=== PATIENT | male | born 1985 | race African-American/Black ===

== ENCOUNTER 2017-01-09 00:22 | Inpatient (IN) | payer OTHER ==
--- NOTE | ~2017-01-09 | PA ---
Unit #: [id number] #: [id number] Patient: WILFREDO BRANDON [id number] [place] [address] [id number] MR#: [id number] NAME: WILFREDO BRANDON ROOM: 84 Age: 31 Sex: M Admission Date: 01/09/2017 : 1985 Date of Assessment: 01/09/2017 Attending Physician: Gregg Barrios M.D. Admitting Physician: Gregg Barrios M.D. Primary Care Physician: Primary Care Physician No PSYCHIATRIC ASSESSMENT IDENTIFYING INFORMATION The patient is a 31-year-old male admitted to the [address] [place] [address] for opioid detox. CHIEF COMPLAINT None given. INFORMANT(S) Chart. Patient cannot be aroused for interview. HISTORY OF PRESENT ILLNESS The patient is a 31-year-old male with a history of opioid dependence. The patient reports that he uses heroin by means of intranasal insufflation. He denies abuse of other psychiatric substances. The patient reports that he is "sick of living like this" and had reported suicidal ideation with plan to overdose. At the time of admission, the patient has no prior history of chemical dependence or other psychiatric treatment and denies prior suicide attempts or gestures. She denies recent changes in sleep or appetite though he does report that his motivation has been poor recently and his attendance to activities of daily living has been poor. PAST PSYCHIATRIC HISTORY None. PAST MEDICAL HISTORY Noncontributory. MEDICATIONS None. ALLERGIES None. FAMILY HISTORY Noncontributory. SOCIAL HISTORY The patient lives with his girlfriend. He is not presently employed. He reports substance use as noted previously. MENTAL STATUS EXAMINATION Examination at this time reveals the patient to be a soundly sleeping male. Multiple attempts to arouse the patient are Unit #: [id number] #: [id number] Patient: WILFREDO BRANDON unfortunately unsuccessful. ASSETS AND LIABILITIES The patient's assets are to be assessed. Liabilities: Lack of resources. DIAGNOSTIC IMPRESSION 1. Opioid use disorder. 2. Dysthymic disorder. TREATMENT PLAN The patient remains hospitalized for safety and stabilization. Suicide precautions are in place and routine detoxification for opioids has been initiated. The patient will participate in appropriate order of milieu activities. ESTIMATED LENGTH OF STAY 3 to 5 days. Dictated by... Prabha Echols TD: 01/09/2017 15:01 JOB #: [id number] PSYCHIATRIC ASSESSMENT Page 1 of 1 X Gregg Barrios MD PSYCHIATRIC ASSESSMENT
--- NOTE | ~2017-01-09 | PN ---
Unit #: [id number] #: [id number] Patient: WILFREDO BRANDON [id number] [facility] [address] [place] [address] [id number] MR#: [id number] NAME: WILFREDO BRANDON ROOM: [facility] Age: 31 Sex: M Admission Date: 01/09/2017 : 1985 Attending Physician: Gregg Barrios M.D. Admitting Physician: Gregg Barrios M.D. Primary Care Physician: Primary Care Physician Corrie OSWALD PROGRESS NOTES DATE 01/10/2017 DISCUSSION The patient is active within the therapeutic milieu. He continues to exhibit symptoms of opioid withdrawal. However, I have spoken with him regarding post-discharge treatment options, and he is expressing interesting in residential chemical dependence treatment following discharge. Dictated by... Gregg Barrios M.D. CB/arlen TD: 01/10/2017 13:54 JOB #: [id number] [facility] PROGRESS NOTES Page 1 of 1 X Gregg Barrios MD PROGRESS NOTE
--- NOTE | ~2017-01-09 | DS ---
Unit #: [id number] #: [id number] Patient: WILFREDO BRANDON [id number] [facility] [address] [place] [address] [id number] MR#: [id number] NAME: WILFREDO BRANDON ROOM: [facility] Age: 31 Sex: M Admission Date: 01/09/2017 : 1985 Discharge Date: 01/12/2017 Attending Physician: Gregg Barrios M.D. Primary Care Physician: Primary Care Physician No DISCHARGE SUMMARY REASON FOR ADMISSION The patient is a 31-year-old male, admitted to the [facility] unit for opioid detox. HOSPITAL COURSE The patient was admitted to the [facility] unit, placed on routine detoxification protocol for opioids. His stay in the hospital was a brief and uneventful one. He exhibited little in the way of signs or symptoms of withdrawal. By 01/13/2017, the patient was in brighter spirits and requested discharge and it was so ordered. FINAL DIAGNOSES Opioid use disorder, cannabis use disorder, methamphetamine use disorder. DISPOSITION ON DISCHARGE The patient is discharged on no psychotropic or other medications. FOLLOWUP Followup will take place through the auspices of the chemical dependency intensive outpatient program provided by this facility. PROGNOSIS Considered fair. Dictated by... Gregg Barrios M.D. CB/sienna TD: 01/13/2017 06:20 JOB #: [id number] DISCHARGE SUMMARY Page 1 of 1 X Gregg Barrios MD X DISCHARGE SUMMARY
--- NOTE | ~2017-01-09 | HP ---
Unit #: [id number] #: [id number] Patient: WILFREDO BRANDON [id number] [place] [address] [id number] MR#: [id number] NAME: WILFREDO BRANDON ROOM: P184 Age: 31 Sex: M Admission Date: 01/09/2017 : 1985 Attending Physician: Gregg Barrios M.D. Admitting Physician: Gregg Barrios M.D. Primary Care Physician: Primary Care Physician No HISTORY AND PHYSICAL HISTORY OF PRESENT ILLNESS Wilfredo is a 31 year old admitted to [facility] because of his drug use. He snorts heroin. PAST MEDICAL HISTORY Long history of opioid abuse to include snorting heroin. PAST SURGICAL HISTORY Bilateral arms. ALLERGIES No known drug allergies. SOCIAL HISTORY Smokes 1 pack per day. Denies alcohol. Admits to a long history of opioid abuse to include snorting heroin. FAMILY HISTORY Medically noncontributory. REVIEW OF SYSTEMS CONSTITUTIONAL: No fever or chills. HEENT: Denies any sore throat, ear pain or runny nose. CARDIOVASCULAR: Denies chest pain, irregular heart rhythm or palpitations. CHEST: Denies shortness of breath or cough. No hemoptysis. GASTROINTESTINAL: Denies nausea, vomiting, diarrhea or chronic constipation. ENDOCRINE: Denies history of increased thirst or urination. No recent significant weight loss or gain. GENITOURINARY: Denies dysuria, frequency, or hematuria. SKIN: Denies any rashes. HEMATOLOGIC: Denies history of increased bleeding or bruising. MUSCULOSKELETAL: Denies any hot, swollen joints. No generalized muscle pain. NEUROLOGIC: Denies problems with vision or speech. No frequent, severe headaches. No numbness, tingling or weakness in any extremities. Denies loss of bladder or bowel control. CURRENT MEDICATIONS Detox protocol. PHYSICAL EXAMINATION GENERAL: Alert, well-nourished, in no apparent distress. Unit #: [id number] #: [id number] Patient: WILFREDO BRANDON VITAL SIGNS: Blood pressure 115/70, heart rate 70, respirations 16, temperature 98.6. WEIGHT: 162. HEIGHT: 5 feet 11 inches. SKIN: Warm and dry without rash or lesion. HEENT: Normocephalic. TMs not viewed. Oral and nasal passages clear. Conjunctivae clear. PERRLA. EOMs intact. NECK: Supple without lymphadenopathy or thyromegaly. HEART: Regular rate and rhythm without murmur. LUNGS: Clear. ABDOMEN: Soft, nontender. : Not done. EXTREMITIES: No evidence of cyanosis, clubbing or edema. Moves all without focal deficit. NEUROLOGICAL: Grossly within normal limits. Cranial Nerves: II: Visual holliday are intact. III, IV AND : Extraocular movements are intact. Pupils are equal, round and reactive to light. V: Facial sensation is grossly normal. VII: Facial movements and expression are normal. VIII: Auditory acuity grossly intact. IX, X: Uvula is midline. Phonation is normal. XI: Patient shrugs shoulders and turns head normally. XII: Tongue protrudes in the midline. Sensory and Motor Function: Sensory and motor sensation is grossly normal. Motor: moves all extremities well. Coordination: Gait is normal. Deep Tendon Reflexes: Intact. IMPRESSION Psychiatric admission. RECOMMENDATIONS PSYCHIATRIC: Per psychiatrist. MEDICAL: See no contraindications to participate in facility's activities. MEDICAL PROGNOSIS Good. MEDICAL CONDITION Stable. Dictated by... Carolyn Han P.A.-C. for Prabha Nassar/tameka TD: 01/09/2017 20:28 JOB #: [id number] Unit #: [id number] #: [id number] Patient: WILFREDO BRANDON HISTORY AND PHYSICAL Page 1 of 1 X Carolyn Han HISTORY AND PHYSICAL
--- NOTE | ~2017-01-09 | PN ---
Unit #: [id number] #: [id number] Patient: WILFREDO BRANDON [id number] [facility] [address] [place] [address] [id number] MR#: [id number] NAME: WILFREDO BRANDON ROOM: [facility] Age: 31 Sex: M Admission Date: 01/09/2017 : 1985 Attending Physician: Gregg Barrios M.D. Admitting Physician: Gregg Barrios M.D. Primary Care Physician: Primary Care Physician Corrie OSWALD PROGRESS NOTES DATE 01/11/2017 DISCUSSION The patient continues to exhibit symptoms of mild opioid withdrawal and request "one more day in the hospital." I have spoken with the patient regarding his post discharge treatment options and expect a.m. discharge. Dictated by... Gregg Barrios M.D. CB/tameka TD: 01/11/2017 16:19 JOB #: [id number] [facility] PROGRESS NOTES Page 1 of 1 X Gregg Barrios MD PROGRESS NOTE
[~2017-01-09 00:22] MED LIST: DOXYCYCLINE MO100 MG PO
[2017-01-09 12:35] LABS: BASOPHIL# 0.1 X10e3 (0-0.3); EOSINOPHIL# 0.6 X10e3 (0-0.7); EOSINOPHIL% 11.4 % (0.0-7.0); HEMATOCRIT 46.4 % (38.0-50.0); HEMOGLOBIN 14.7 gm/dL (13.0-16.0); LYMPHOCYTE# 1.7 X10e3 (1.0-3.5); LYMPHOCYTE% 30.9 % (17.0-45.0); MEAN CELL VOLUME 82.1 FL (83-96); MEAN CORPUSCULAR HGB CONC 31.6 g/dL (30-36); MEAN PLATELET VOLUME 8.9 FL (6.5-11.5); MONOCYTE# 0.6 X10e3 (0-1.0); MONOCYTE% 10.4 % (3.0-12.0); NEUTROPHIL# 2.5 X10e3 (1.5-7.1); NEUTROPHIL% 45.3 % (40-75); PLATELET COUNT 261 X10e3 (140-420); RED BLOOD COUNT 5.66 X10e (3.90-5.60); RED CELL DISTRIBUTION WIDTH 14.2 % (11.0-15.5); WHITE BLOOD COUNT 5.5 X10e3 (4.0-10.5)
[2017-01-09 12:42] LABS: DIFF IND NO
[2017-01-09 12:47] LABS: BILIRUBIN,TOTAL 0.6 mg/dL (0.2-2.0); BUN/CREATININE RATIO 13.33; CALCIUM SERUM 9.8 mg/dL (8.4-10.2); CREATININE SERUM 0.9 mg/dL (0.6-1.4); GLOM FILT RATE Estimated 133.3 mL/min (>60); POTASSIUM 4.3 mmol/L (3.5-5.1); PROTEIN TOTAL SERUM 6.7 g/dL (6.0-8.3)
[2017-01-09 12:57] LABS: URINE APPEARANCE CLEAR; URINE BILIRUBIN NEG (NEG); URINE BLOOD NEG (NEG); URINE COLOR DK YELLOW; URINE GLUCOSE NEG (NEG); URINE KETONE NEG (NEG); URINE LEUKOCYTE ESTERASE NEG (NEG); URINE NITRATE NEG (NEG); URINE PH 6.5 (5-8); URINE PROTEIN NEG (NEG); URINE SPECIFIC GRAVITY 1.024 (1.003-1.035)
[2017-01-09 13:36] LABS: AMPHETAMINE POS (NEG); BARBITURATES NEG (NEG); BENZODIAZEPINES NEG (NEG); COCAINE NEG (NEG); MARIJUANA POS (NEG); OPIATES NEG (NEG); TRICYCLIC ANTIDEPRESSANTS POS (NEG); U METHADONE NEG (NEG)
[2017-01-12 01:21] LABS: HA AB IGM (HEPPAN) Nonreactive (()); HB CORE AB IGM (HEPPAN) Nonreactive (Nonreactive); HB S AG (HEPPAN) Nonreactive (Nonreactive); HEP C AB (HEPPAN) Nonreactive (Nonreactive); HEP C AB SIGNAL TO CUTOFF 0.01 ratio (<1.00)
== END 2017-01-12 17:30 | DRG 897 ==
LOC: P1E 00:22
PROVIDERS: Specialist
PROC: HZ2ZZZZ Detoxification Services for Substance Abuse Treatment (ICD-10-PCS; principal; 2017-01-09)
DX: F11.10 Opioid abuse, uncomplicated (principal); R45.851 Suicidal ideations; F34.1 Dysthymic disorder; F17.210 Nicotine dependence, cigarettes, uncomplicated; F15.10 Other stimulant abuse, uncomplicated; F12.10 Cannabis abuse, uncomplicated
CPT/HCPCS: 80053; 80074; 80307; 81003; 85025; 86592; 87806